=== PATIENT | male | born 1995 | race Caucasian/White ===

== ENCOUNTER 2020-06-23 10:02 | Emergency (ER) | payer MEDICAID ==
[~2020-06-23] VITALS: Ht 180.3 cm; Wt 79.4 kg
[2020-06-23 10:15] VITALS: Ht 180.3 cm; Wt 79.4 kg
[2020-06-23 12:28] VITALS: BP 144/84
== END 2020-06-23 11:30 | disposition home or self-care (01) ==
LOC: ED 10:02
DX: S93.601A Unspecified sprain of right foot, initial encounter (principal); Z88.1 Allergy status to other antibiotic agents; W22.8XXA Striking against or struck by other objects, initial encounter; Y93.89 Activity, other specified; Y92.89 Other specified places as the place of occurrence of the external cause; Y99.8 Other external cause status
CPT/HCPCS: Q0092